=== PATIENT | female | born 1945 | race Caucasian/White ===

== ENCOUNTER 2020-01-22 07:25 | Inpatient (IN) | payer OTHER ==
[~2020-01-22] VITALS: Ht 152.4 cm; Wt 68.3 kg
--- NOTE | ~2020-01-22 | HC ---
[facility] [place] [address] CONSULTATION Name: DINESH MERA Room #: 362- ADM IN M.R.#: [id number] Admission: 01/22/20 Attend Phys: Tim Pagan MD Discharge: Date of : 45 Report #: [id number] THIS REPORT FOR: cc: FAM - Family physician unknown FAM - Family physician unknown Gina Fortune MD ~ REASON FOR CONSULTATION: Elevated creatinine. HISTORY OF PRESENT ILLNESS: A 74-year-old who was brought to the hospital because of worsening overall condition, nausea, vomiting. The patient was discharged from [facility] about a week ago for DVT. She tested positive for COVID-19 and was sent home to self-quarantine. On arrival to the Emergency Room, she was found to have a creatinine value of 5.1. She tells me that she is known to have chronic kidney disease and she sees Dr. Manzano. She was admitted for further evaluation and management. I was consulted to manage her chronic kidney disease. Unfortunately, the patient is not clear by any means on any of her medical problems. We only have creatinine value from 01/22/2020 on watch. PAST MEDICAL HISTORY: 1. Hyperlipidemia. 2. Hypertension. 3. Diabetes mellitus obtained from the medical chart. SOCIAL HISTORY: No drug or alcohol abuse. REVIEW OF SYSTEMS: GENERAL: Significant for weakness and lethargy. CARDIOVASCULAR: No chest pain or palpitation. PULMONARY: Significant for cough and shortness of breath. GASTROINTESTINAL: Significant for nausea and vomiting and decreased oral intake. NEUROLOGICAL: Significant for weakness, but no seizure activities. FAMILY HISTORY: Diabetes mellitus. PHYSICAL EXAMINATION: VITAL SIGNS: Temperature is 36.4, blood pressure is 145/56, respiratory rate is 20. Bedside pulse ox is 96. HEAD AND NECK: No jugular venous distention. CHEST: No crackles. CARDIOVASCULAR: No rub. ABDOMEN: Soft, nontender. LOWER EXTREMITIES: No edema. [facility] [address] [place] [address] CONSULTATION Name: DINESH MERA Room #: 362-P [facility] IN [facility]#: [id number] Admission: 01/22/20 Attend Phys: Tim Pagan MD Discharge: Date of : 45 Report #: [id number] LABORATORY VALUES: Sodium is 131, potassium is 4.3, BUN is 58, creatinine is down to 4.0. IMPRESSION AND PLAN: 1. Chronic kidney disease. 2. COVID-19. 3. I will need to review the patient's medical records from [facility] to know what her baseline is. She sees another electronic warfare linguist and I will reach out to that electronic warfare linguist to discuss her care. As for now, her creatinine seems to be improving and her acute kidney injury seems to be related to her current COVID-19 status. Continue with the IV fluid. 4. Continue to monitor electrolytes. 5. Avoid nephrotoxins. 6. She is stable to be discharged and follow up with her electronic warfare linguist if she is cleared from the other medical aspects. By: 0729 1759 Gina Fortune MD /nt
[2020-01-22 07:26] VITALS: BP 142/54
[2020-01-22 08:52] LABS: HEMATOCRIT 30.6 % (37.0-47.0); MCH 28.5 pg (26.0-34.0); MCHC 32.7 g/dL (28.0-37.0); MCV 87.1 fL (80.0-100.0); RBC 3.51 mil/uL (4.20-5.00); RDW 14.6 % (10.5-14.5); WBC 5.2 thou/uL (4.0-11.0)
[2020-01-22 09:01] LABS: ANION GAP 11 mmol/L (7-16); BUN 82 mg/dL (7-18); CALCIUM 8.8 mg/dL (8.5-10.1); CHLORIDE 100 mmol/L (98-107); CO2 27 mmol/L (21-32); CREATININE 5.1 mg/dL (0.6-1.0); GLUCOSE 193 mg/dL (74-106); POTASSIUM 3.5 mmol/L (3.5-5.1); SODIUM 138 mmol/L (136-145)
[2020-01-22 09:09] LABS: TROPONIN-I <0.06 ng/mL (<0.06)
[2020-01-22 10:19] LABS: URINE BILIRUBIN NEGATIVE (Negative); URINE BLOOD NEGATIVE (Negative); URINE CLARITY CLOUDY; URINE COLOR YELLOW; URINE GLUCOSE-RANDOM* NEGATIVE (Negative); URINE KETONES NEGATIVE (Negative); URINE NITRITE-REFLEX NEGATIVE (Negative); URINE PROTEIN (DIPSTICK) 2+ (Negative); URINE SPECIFIC GRAVITY 1.015 (1.005-1.035); URINE UROBILINOGEN 0.2 E.U./dl (0.2-1.0)
[2020-01-22 10:26] LABS: URINE LEUKOCYTES-REFLEX 3+ (Negative)
[2020-01-22 10:39] LABS: BACTERIA-REFLEX >30 Many /HPF (None Seen); CASTS None Seen /LPF (None Seen); CRYSTALS None Seen /LPF (None Seen); SQUAMOUS 0-3 Few /LPF (0-3)
[2020-01-22 10:40] LABS: URINE RBC None Seen /HPF (0-2)
[2020-01-22 16:12] LABS: ANION GAP 12 mmol/L (7-16); BUN 76 mg/dL (7-18); CALCIUM 8.7 mg/dL (8.5-10.1); CHLORIDE 101 mmol/L (98-107); CO2 25 mmol/L (21-32); CREATININE 4.8 mg/dL (0.6-1.0); DIRECT BILIRUBIN < 0.1 mg/dL (<0.1-0.2); GLUCOSE 122 mg/dL (74-106); POTASSIUM 4.4 mmol/L (3.5-5.1); SGOT 41 U/L (15-37); SGPT 30 U/L (30-65); SODIUM 138 mmol/L (136-145); TOTAL BILIRUBIN 0.3 mg/dL (0.2-1.0); TOTAL PROTEIN 6.4 g/dL (6.4-8.2)
[2020-01-22 16:14] VITALS: BP 138/75
[2020-01-22 18:15] VITALS: BP 134/74
[2020-01-22 18:34] VITALS: BP 143/51
--- NOTE | 2020-01-22 19:07 | NUR ---
PATIENT ADMIT TO UNIT AT 1830. VSS WILL KEEP MONITOR.
[2020-01-22 19:30] VITALS: BP 143/51
[2020-01-22 20:29] LABS: HEMATOCRIT 30.4 % (37.0-47.0); HEMOGLOBIN 10.2 gm/dL (12.0-15.0); MCH 28.9 pg (26.0-34.0); MCHC 33.4 g/dL (28.0-37.0); MCV 86.6 fL (80.0-100.0); RBC 3.51 mil/uL (4.20-5.00); RDW 14.7 % (10.5-14.5); WBC 5.3 thou/uL (4.0-11.0)
[2020-01-23] VITALS (7 sets, daily range): BP systolic 114–153; BP diastolic 43–75
--- NOTE | 2020-01-23 00:29 | NUR ---
PT ADMITTED FROM ED. PT WAS AT HOME LOW FSBS NOT RESPONSIVE, CALLED 911. HAS HAD A STROKE AND HAS HEMIPARESIS. DAUGHTERS CARE FOR PT AND HER . JERRY PALOMO [phone], VASU SAMARIA [phone]. PT DOES NOT HAVE A DPOA. POLLY MERA [phone]. PT IS ALERT TO SELF AND SITUATION, REPETITIVELY ASKS THE SAME QUESTIONS. GAIT UNSTEADY. PT ANSWERED ASSESSMENT QUESTIONS, PT DID NOT KNOW HER HUSBANDS PHONE NUMBER OR DAUGHTERS NAME, BUT GAVE NURSE HER SISTERLUIZA NAME AND A PHONE NUMBER THAT DID NOT WORK. IVF INTACT. PT ASSISTED WITH AMBULATION, BED ALARM ON. PT RESTING IN BED WATCHING ROMAN CATHOLIC ON TV.
--- NOTE | 2020-01-23 02:23 | NUR ---
PT REPETITIVELY GETTING OOB, ASKING WHERE SHE IS, WHY SHE IS HERE, WHERE IS HER . PRN PROVIDED EARLIER IN SHIFT, PT WAS LESS IMPULSIVE AND RESTLESS AND CALM. WILL CALL PROVIDER PT REPEATING PATTERNS OF FREQUENTLY GETTING OOB, ASKING QUESTIONS RE WHERE SHE IS AND WHY SHE IS HERE, PT NOT REMEMEBERING STAFFS REDIRECTION.
[2020-01-23 06:20] LABS: CALCIUM 8.6 mg/dL (8.5-10.1); CREATININE 4.4 mg/dL (0.6-1.0); POTASSIUM 3.9 mmol/L (3.5-5.1)
--- NOTE | 2020-01-23 07:33 | EKG ---
[facility] [place] [address] ELECTROCARDIOGRAM REPORT Name: DINESH MERA Room #: 362-P ADM IN M.R.#: [id number] Admission: 01/22/20 Attend Phys: Tim Pagan MD Discharge: Date of : 45 Report #: [id number] THIS REPORT FOR: cc: JENARO - Family physician unknown FAM - Family physician unknown Vick Moncada MD [facility] ~ THIS REPORT FOR: //name// [facility] ED Test Date: 2020-01-22 Test Time: 08:42:26 Pat Name: DINESH MERA Department: Room: [facility] Gender: F Regulator Inspector: Ranulfo : 1945 Requested By: Kendell Stoddard Order Number: [id number] MD: Vick Moncada Measurements Intervals [place] Rate: 79 P: 57 ID: 215 QRS: 35 QRSD: 134 T: -68 QT: 373 QTc: 428 Interpretive Statements Sinus rhythm Borderline prolonged ID interval IVCD, consider atypical LBBB Baseline wander in lead(s) II Compared to ECG 10/14/2001 20:44:13 No significant changes Electronically Signed On 01-23-2020 7:33:26 NURSES' ASSOCIATION EXECUTIVE DIRECTOR by Vick Moncada [email or web address] <ELECTRONICALLY SIGNED> By: Vick Moncada MD, FACC 01/23/20 0733 0842 Vick Moncada MD, [facility] /EPI
--- NOTE | 2020-01-23 15:47 | NUR ---
Case opened to follow for dc planning. Pt admitted yesterday via the ER with AMS,hypoglycemia, MICHELLE, UTI and Covid positive. The pt is currently in enhanced ISO and unable to complete phone assessment due to confusion. Cloud Security Architect visited with the pt's dtrs Kyra and Ashlee via phone. They are taking care of their father, the pt's spouse who is disabled from a stroke. The dtrs report that the pt and her spouse were both tested positive 2 weeks ago. The pt was at [facility] due to cardiac issues resulting in stent placement. Her initial positive test was on 01/07/20 at [facility]. The pt was dc'd to home a few days ago and HH [facility]. [facility] has been notified of the pt's readmission to the hospital and they can accept at dc. The family reports that the pt was A&ox3 but forgetful prior to 2 weeks ago. She was indep with her meds, gait and most adl's prior to this as well. She has no DME/HH or SNF history. The family helps the couple with IADL's and supervision as well as transportation. They live in a split level home with 3 steps in and 7 up to the bedroom/bath. The pt had been indep prior to the past couple of weeks. The family is hoping the pt's mental status and functional status will improve and she will be able to dc home with HH;however they are open to SNF and possible ltc if needed. SNF referral to [facility] discussed as a plan B. Support provided. ID has been consulted and the pt may be able to dc from enhanced ISO given her original Covid test being >14 days. Cm role introduced. Therapy evals are pending.
--- NOTE | 2020-01-24 00:49 | NUR ---
PT C/O CHEST PAIN, LOWER STERNUM 5/10 USING FACES PAIN SCALE. PT REPORTS A "SHARP" FEELING. PAIN WAS REPRODUCABLE BY PLACING PRESSURE AT THAT SITE. SHE DENIED ANY SOA WHILE AT REST, OR ANY FURTHER SX. TYLENOL GIVEN AND PT REPORTED SOME MILD RELIEF OF THAT PAIN AFTERWARDS. PT CALLED AGAIN AT 2330 WITH CHEST PAIN. SAME LOCATION, SAME DESCRIPTION AND PAIN RATING EXCEPT THIS TIME SHE ALSO REPORTED SOME "BURNING." EKG DONE, TROPONIN DONE AND PENDING. SPOKE WITH DELIVERY RN, REPORTED SITUATION AND EKG FINDINGS INCLUDING VITAL SIGNS. LOPRESSOR AND GI COCKTAIL ORDERED AND GIVEN. NOTED ON THIS SECOND OCCASION THAT PT C/O CHEST PAIN WITH HEART RATE 120'S.
[2020-01-24 01:13] LABS: CALCIUM 8.1 mg/dL (8.5-10.1); POTASSIUM 4.3 mmol/L (3.5-5.1)
[2020-01-24 01:23] LABS: PHOSPHORUS 2.8 mg/dL (2.5-4.9); TROPONIN-I 0.09 ng/mL (<0.06)
[2020-01-24 03:47] VITALS: BP 133/52
[2020-01-24] MEDS ORDERED: GLIPIZIDE 10 MG10 MG PO (06:12)
[2020-01-24] MEDS ORDERED: TOPROL XL100 MG PO (06:12)
[2020-01-24] MEDS ORDERED: LIPITOR40 MG PO (06:13)
[2020-01-24] MEDS ORDERED: ASA81BEC PO (06:13)
[2020-01-24] MEDS ORDERED: HYDROCODON-ACE1 EAC7 PO (06:13)
[2020-01-24] MEDS ORDERED: UNICOMPLEX M TA1 TA1 PO (06:14)
[2020-01-24] MEDS ORDERED: SODIUM BICARBO650 M3 PO (06:15)
[2020-01-24] MEDS ORDERED: IMDUR 60 MG TAB60 M1 PO (06:15)
[2020-01-24] MEDS ORDERED: NORVASC 2.5 MG2.5 M1 PO (06:20)
[2020-01-24] MEDS ORDERED: HYDRALAZINE HC100 MG PO (06:21)
[2020-01-24 07:21] VITALS: BP 145/56
--- NOTE | 2020-01-24 07:26 | EKG ---
[facility] [place] [address] ELECTROCARDIOGRAM REPORT Name: DINESH MERA Room #: 362- ADM IN M.R.#: [id number] Admission: 01/22/20 Attend Phys: Tim Pagan MD Discharge: Date of : 45 Report #: [id number] THIS REPORT FOR: cc: JENARO - Family physician unknown FAM - Family physician unknown Vick Moncada MD [facility] THIS REPORT FOR: //name// [facility] Test Date: 2020-01-23 Test Time: 23:49:57 Pat Name: DINESH MERA Department: Room: 362 Gender: F Mold Clamper: DARYA COLLINS : 1945 Requested By: Judie Johnston Order Number: [id number] MD: Vick Moncada Measurements Intervals [place] Rate: 103 P: 106 CO: 178 QRS: 23 QRSD: 105 T: 85 QT: 387 QTc: 507 Interpretive Statements Sinus tachycardia Borderline repol abnormality, lateral leads Prolonged QT interval Compared to ECG 01/22/2020 08:42:26 Prolonged QT interval now present Sinus rhythm no longer present Electronically Signed On 01-24-2020 7:25:53 [employer] by Vick Moncada [email or web address] <ELECTRONICALLY SIGNED> By: Vick Moncada MD, FACC 01/24/20 0725 2349 2349 Vick Moncada MD, [facility] /EPI
--- NOTE | 2020-01-24 14:57 | NUR ---
MARIMAR reviewed chart and spoke with nursing and attending physician. Pt remains in Enhanced Isolation due to COVID-19. Pt is afebrile and not requiring O2. Pt is on IV abx and IV steroids. ID and cardiology consulted. PT/OT have evaluated pt. Recommendation made for pt to have HH services. MARIMAR spoke with pt's dtr, Kyra, via phone to provide update. Pt's dtr is agreeable with plan for HH. MARIMAR faxed HH referral to [facility] and spoke with Teri in intake to notify of referral. Plan is for pt to return home with HH when medically stable. MARIMAR is following to assist as needed with discharge planning.
[2020-01-24 15:36] VITALS: BP 122/46
[2020-01-24 20:12] VITALS: BP 111/43
[2020-01-25 04:40] LABS: ALBUMIN 2.5 g/dL (3.4-5.0); CALCIUM 8.1 mg/dL (8.5-10.1); CREATININE 3.9 mg/dL (0.6-1.0); PHOSPHORUS 2.3 mg/dL (2.5-4.9); POTASSIUM 4.3 mmol/L (3.5-5.1)
[2020-01-25 04:48] VITALS: BP 127/55
--- NOTE | 2020-01-25 05:25 | NUR ---
PT MAKING PROGRESS TOWARDS GOAL. PT HAS DENIED ANY CHEST PAIN OVERNIGHT. PT CALM AND COOPERATIVE WITH STAFF. CONTINUE TO MONITOR.
[2020-01-25] MEDS ORDERED: CLOPIDOGREL75 MG PO (07:57)
[2020-01-25 10:10] VITALS: BP 127/55
[2020-01-25] MEDS ORDERED: TRADJENTA5 MG PO (10:35)
[2020-01-25] MEDS ORDERED: CIPRO500 MG PO (10:35)
--- NOTE | 2020-01-25 13:42 | NUR ---
ASSUMED CARE OF PT AT 0700. PT ALERT AND ORIENTED TIMES FOUR. VSS. PT DENIES PAIN/SOA. PT UP SITING IN THE CHAIR FOR MOST OF THE DAY. PT TOLERAES MEDS, BUT EATS SMALL PORTIONS OF MEALS. PLANS FOR DISCHAGE HOME TODAY. WILL CONTINUE TO MONITOR.
--- NOTE | 2020-01-25 13:47 | NUR ---
DISCHARGE NOTE: MARIMAR reviewed chart and spoke with nursing and attending physician. Pt is medically stable for discharge home today with home health. MARIMAR faxed finalized discharge orders/summary to [facility] and confirmed info with Aurea in intake. MARIMAR left voice message for pt's dtr, Kyra, to notify of discharge orders. MARIMAR receivd call back from Kyra stating that she is at the hospital picking up pt. All are agreeable with discharge plan. Contact info for [facility] placed in pt's discharge summary. No additional SW needs identified at this time, but is available to assist should needs arise.
== END 2020-01-25 13:45 | disposition home health service (06) | DRG 177 ==
LOC: ER 07:25 → EROBS 10:53 → 3W 10:53
PROVIDERS: Emergency Medicine; Hospitalist; ADMIT Hospitalist; ATTEND Hospitalist
DX: U07.1 COVID-19 (principal); G93.41 Metabolic encephalopathy; N17.0 Acute kidney failure with tubular necrosis; N39.0 Urinary tract infection, site not specified; E87.1 Hypo-osmolality and hyponatremia; N18.4 Chronic kidney disease, stage 4 (severe); E11.649 Type 2 diabetes mellitus with hypoglycemia without coma; E78.5 Hyperlipidemia, unspecified; Z79.899 Other long term (current) drug therapy; E11.22 Type 2 diabetes mellitus with diabetic chronic kidney disease; E11.51 Type 2 diabetes mellitus with diabetic peripheral angiopathy without gangrene; I12.9 Hypertensive chronic kidney disease with stage 1 through stage 4 chronic kidney disease, or unspecified chronic kidney disease; I25.10 Atherosclerotic heart disease of native coronary artery without angina pectoris; D64.9 Anemia, unspecified; B96.20 Unspecified Escherichia coli [E. coli] as the cause of diseases classified elsewhere; Z88.0 Allergy status to penicillin; Z88.8 Allergy status to other drugs, medicaments and biological substances; Z95.820 Peripheral vascular angioplasty status with implants and grafts; Z79.82 Long term (current) use of aspirin
CPT/HCPCS: 10879

== ENCOUNTER 2020-03-27 20:29 | Observation (INO) | payer OTHER ==
[~2020-03-27] VITALS: Ht 152.4 cm; Wt 65.8 kg
--- NOTE | ~2020-03-27 | P ---
[facility] [place] [address] PROCEDURE REPORT Name: DINESH MERA Room #: 210-P [facility] Puneet [place]#: [id number] Admission: 03/27/20 Attend Phys: Tim Pagan MD Discharge: 03/29/20 Date of : 45 Report #: [id number] THIS REPORT FOR: cc: Lm Chappell MD, Steven E. MD McElhinney, Christian C. MD ~ DATE OF SERVICE: 03/29/2020 PROCEDURE PERFORMED: Upper endoscopy with biopsies. HISTORY OF PRESENT ILLNESS: The patient is a 74-year-old female who was admitted with chest pain. She has a previous history of coronary artery disease, status post CABG in 2003, on aspirin and Plavix, was noted to have a hemoglobin of 9.3. She denies any obvious bright red blood per rectum or melena. No previous history of upper endoscopy. Last colonoscopy was greater than 10 years ago. Cardiac workup was negative. Plan is for upper endoscopy today. DESCRIPTION OF PROCEDURE: The risks and benefits of the procedure were explained to the patient, those risks including, but not limited to, bleeding, perforation, and the risk of sedation. She understood these risks and gave informed consent. Sedation was given using propofol per anesthesia. Next, using a standard Olympus upper endoscope, the scope was placed in the patient's mouth and advanced under direct vision to the esophagus, stomach, and into the second portion of the duodenum. The larynx was normal in appearance. The esophagus was normal throughout. The GE junction was normal. Overall, the gastric fundus and body were normal. In the gastric antrum, however, a single 2 cm clean white-based ulcer was noted. No evidence of bleeding. Biopsies were obtained to rule out H. pylori. The pylorus was normal and patent. The duodenal bulb, first and second portion were all normal. The scope was then withdrawn and the procedure terminated. The patient tolerated the procedure well. IMPRESSION: 1. Single antral ulcer. No active bleeding; however, could be etiology of the patient's anemia. 2. Otherwise, normal upper endoscopy. RECOMMENDATIONS: 1. Await biopsy results. 2. Would recommend starting daily PPI therapy. I gave the patient a script for Protonix 40 mg on a daily basis, as she is likely to be discharged home today. 3. Would recommend a routine outpatient colonoscopy when the patient can be off aspirin and Plavix for approximately [address] [address] PROCEDURE REPORT Name: DINESH MERA Room #: 210-P [facility] [place]#: [id number] Admission: 03/27/20 Attend Phys: Tim Pagan MD Discharge: 03/29/20 Date of : 45 Report #: [id number] Thank you for allowing me to participate in her care. By: 1502 1746 Todd Kaiser MD /nt
[~2020-03-27 20:29] MED LIST: ASA81BEC PO; CIPRO500 MG PO; CLOPIDOGREL75 MG PO; GLIPIZIDE 10 MG10 MG PO; HYDRALAZINE HC100 MG PO; HYDROCODON-ACE1 EAC7 PO; IMDUR 60 MG TAB60 M1 PO; LIPITOR40 MG PO; NORVASC 2.5 MG2.5 M1 PO; SODIUM BICARBO650 M3 PO; TOPROL XL100 MG PO; TRADJENTA5 MG PO; UNICOMPLEX M TA1 TA1 PO
[2020-03-27 20:31] VITALS: BP 193/60
[2020-03-27 21:12] LABS: ABSOLUTE NEUTROPHILS 4.3 thou/uL (1.4-8.2); BASOPHILS 2.8 % (0.0-2.0); EOSINOPHILS 4.4 % (0.0-3.0); HEMATOCRIT 29.3 % (37.0-47.0); HEMOGLOBIN 9.4 gm/dL (12.0-15.0); LYMPHOCYTES 14.7 % (24.0-44.0); MCH 27.6 pg (26.0-34.0); MCHC 32.2 g/dL (28.0-37.0); MCV 85.8 fL (80.0-100.0); MONOCYTES 7.6 % (1.0-8.0); PLATELET COUNT 349 thou/uL (150-400); POLYS 70.5 % (36.0-66.0); RBC 3.41 mil/uL (4.20-5.00); RDW 15.1 % (10.5-14.5); WBC 6.1 thou/uL (4.0-11.0)
[2020-03-27 21:19] LABS: ANION GAP 14 mmol/L (7-16); BUN 33 mg/dL (7-18); CALCIUM 8.9 mg/dL (8.5-10.1); CHLORIDE 104 mmol/L (98-107); CO2 20 mmol/L (21-32); CREATININE 3.6 mg/dL (0.6-1.0); GLUCOSE 198 mg/dL (74-106); POTASSIUM 4.2 mmol/L (3.5-5.1); SODIUM 138 mmol/L (136-145)
[2020-03-27 21:28] LABS: SGOT 18 U/L (15-37); SGPT 20 U/L (30-65); TOTAL BILIRUBIN 0.2 mg/dL (0.2-1.0); TOTAL PROTEIN 7.6 g/dL (6.4-8.2); TROPONIN-I <0.06 ng/mL (<0.06)
[2020-03-27 22:19] VITALS: BP 153/57
[2020-03-27 22:45] VITALS: BP 157/52
[2020-03-27 23:10] VITALS: BP 159/54
--- NOTE | 2020-03-28 00:37 | NUR ---
PATIENT IS A NEW ADMISSION TO THE UNIT THIS SHIFT. SHE ARRIVED VIA CART FROM THE ER AND WAS ABLE TO AMBULATE TO THE BED WITHOUT ASSISTANCE. PATIENT IS FULLY ALERT AND ORIENTED AND ABLE TO PARTICIPATE IN ADMISSION AND CALL APPROPRIATELY FOR NEEDS. NO COMPLAINTS OF CHEST PAIN OR ANY OTHER CARDIAC SYMPTOMS. NURSE TO COMPLETE ADMISSION AND INITIATE PLAN OF CARE.
[2020-03-28 02:48] LABS: HEMATOCRIT 25.9 % (37.0-47.0); HEMOGLOBIN 8.4 gm/dL (12.0-15.0); MCH 27.4 pg (26.0-34.0); MCHC 32.3 g/dL (28.0-37.0); MCV 84.9 fL (80.0-100.0); RBC 3.05 mil/uL (4.20-5.00); RDW 14.8 % (10.5-14.5); WBC 4.8 thou/uL (4.0-11.0)
[2020-03-28 03:09] LABS: ANION GAP 11 mmol/L (7-16); BUN 31 mg/dL (7-18); CALCIUM 8.6 mg/dL (8.5-10.1); CHLORIDE 108 mmol/L (98-107); CHOLESTEROL 139 mg/dL (<200); CO2 21 mmol/L (21-32); CREATININE 3.4 mg/dL (0.6-1.0); GLUCOSE 124 mg/dL (74-106); HDL CHOLESTEROL 60 mg/dL (>40); LDL CHOLESTEROL 57 mg/dL (<100); POTASSIUM 4.4 mmol/L (3.5-5.1); SODIUM 140 mmol/L (136-145); TC:HDL 2.3 Ratio (Not establshd); TRIGLYCERIDE 111 mg/dL (<150); TROPONIN-I <0.06 ng/mL (<0.06); VLDL 22 mg/dL (<40)
[2020-03-28 03:11] LABS: SERUM ASSESSMENT Clear
[2020-03-28 04:36] VITALS: BP 157/55
--- NOTE | 2020-03-28 07:27 | EKG ---
[address] [place] [address] ELECTROCARDIOGRAM REPORT Name: DINESH MERA Room #: 210-P ADM IN M.R.#: [id number] Admission: 03/27/20 Attend Phys: Tim Pagan MD Discharge: Date of : 45 Report #: [id number] [facility] ED Test Date: 2020-03-27 Test Time: 20:37:14 Pat Name: DINESH MERA Department: Room: 210 Gender: F Cryptographic Technician: MERISSA : 1945 Requested By: Juwan Gamboa Order Number: [id number] MD: Vick Moncada Measurements Intervals [place] Rate: 57 P: 48 VA: 170 QRS: 15 QRSD: 108 T: 37 QT: 450 QTc: 439 Interpretive Statements Sinus rhythm Anteroseptal infarct, old Minimal ST depression, lateral leads Baseline wander in lead(s) I,III,aVL,aVF,V4,V6 Compared to ECG 01/23/2020 23:49:57 Myocardial infarct finding now present ST (T wave) deviation now present Sinus tachycardia no longer present Prolonged QT interval no longer present Electronically Signed On 03-28-2020 7:27:03 SALES OPERATIONS COORDINATOR by Vick Moncada [email or web address] <ELECTRONICALLY SIGNED> By: Vick Moncada MD, FACC 03/28/20726 36 36 Vick Moncdaa MD, FAC /EPI
[2020-03-28] MEDS ORDERED: ARICEPT10 M1 PO (07:36)
[2020-03-28] MEDS ORDERED: LEVEMIR100 UNIT/1 SUBQ (07:37)
[2020-03-28] MEDS ORDERED: HYDRALAZINE 5050 MG PO (07:55)
[2020-03-28 08:45] VITALS: BP 155/99
[2020-03-28 08:56] LABS: % SATURATION 17 % (20-39); IRON 34 ug/dL (50-170); TIBC 199 ug/dL (250-450)
--- NOTE | 2020-03-28 12:02 | 2DMMODE ---
[facility] [place] [address] 2 D/M-MODE ECHOCARDIOGRAM Name: DINESH MERA Room #: 210-P ADM IN M.R.#: [id number] Admission: 03/27/20 Attend Phys: Tim Pagan MD Discharge: Date of : 45 Report #: [id number] THIS REPORT FOR: cc: Lm Chappell MD, Steven E. MD Santiago, Patrick MD [facility] ~ APPROVED REPORT Study performed: 03/28/2020 10:18:35 EXAM: Comprehensive 2D, Doppler, and color-flow Echocardiogram Patient Location: Bedside Status: routine BSA: 1.72 HR: 57 bpm BP: 155/99 mmHg Rhythm: Bradycardia Other Information Study Quality: Good Indications Diabetes CAD Chest Pain Hypertension/HDD 2D Dimensions RVDd: 49.98 mm IVSd: 10.13 (7-11mm) LVOT Diam: 18.93 (18-24mm) LVDd: 44.76 mm PWd: 11.51 (7-11mm) LVDs: 28.48 (25-40mm) Aortic Root: 22.78 mm IVC: 12.00 mm Volumes Left Atrial Volume (Systole) Single Plane 4CH: 59.47 mL Single Plane 2CH: 114.59 mL LA ESV Index: 52.00 mL/m2 Aortic Valve AoV Peak Sea.: 1.40 m/s AO Peak Gr.: 7.85 mmHg LVOT Max P.14 mmHg [facility] [address] [place] [address] 2 D/M-MODE ECHOCARDIOGRAM Name: DINESH MERA Trae Room #: 210-P [facility] IN .R.#: [id number] Admission: 03/27/20 Attend Phys: Trae More Discharge: Date of : 45 Report #: [id number] LVOT Max V: 0.89 m/s KATIE Vmax: 1.78 cm2 Mitral Valve E/A Ratio: 1.1 MV Decel. Time: 323.11 ms MV E Max Sea.: 1.46 m/s MV A Sea.: 1.30 m/s MV PHT: 93.70 ms Pulmonary Valve PV Peak Sea.: 1.18 m/s PV Peak Gr.: 5.56 mmHg Pulmonary Vein P Vein S: 0.59 m/s P Vein A: 0.50 m/s P Vein D: 0.55 m/s P Vein A Dur.: 143.0 msec P Vein S/D Ratio: 1.07 Tricuspid Valve TR Peak Sea.: 3.41 m/s TR Peak Gr.: 46.60 mmHg PA Pressure: 52.00 mmHg Left Ventricle The left ventricle is normal size. There is normal left ventricular wall thickness. The left ventricular systolic function is normal. The left ventricular ejection fraction is within the normal range. LVEF is 55-60%. The left ventricular diastolic function is abnormal. Right Ventricle Right ventricle is dilated. The right ventricular systolic function is normal. Atria Left atrium is dilated. Right atrium is dilated. Aortic Valve The aortic valve is normal in structure. The Aortic valve is sclerotic. No aortic regurgitation is present. There is no aortic valvular stenosis. Mitral Valve The mitral valve is normal in structure. Moderate mitral regurgitation. No evidence of mitral valve stenosis. [facility] [address] [place] [address] 2 D/M-MODE ECHOCARDIOGRAM Name: DINESH MERA Room #: 210-[facility] IN .R.#: [id number] Admission: 03/27/20 Attend Phys: Trae More Discharge: Date of : 45 Report #: [id number] Tricuspid Valve The tricuspid valve is normal in structure. There is moderate tricuspid regurgitation. Estimated PAP 52 mmHg. There is moderate pulmonary hypertension. Pulmonic Valve The pulmonary valve is normal in structure. There is no pulmonic valvular regurgitation. Great Vessels The aortic root is normal in size. IVC is normal in size and collapses >50% with inspiration. Pericardium There is no pericardial effusion. <Conclusion> Normal left ventricular size and wall thickness Ejection fraction 60% Right ventricle mildly dilated Mild biatrial enlargement Color-flow Doppler study was performed of the aortic/mitral/tricuspid/pulmonary valve Minimal aortic valve calcification, no stenosis Moderate/central mitral valve insufficiency Moderate tricuspid valve insufficiency Pulmonary artery systolic pressure estimated at 52 mmHg No pericardial effusion Normal aortic root size. <ELECTRONICALLY SIGNED> By: Vick Moncada MD, FACC 03/28/201201 01 01 Vick Moncada MD, FACC /INF
[2020-03-28 12:11] LABS: HEMATOCRIT 29.1 % (37.0-47.0); HEMOGLOBIN 9.3 gm/dL (12.0-15.0)
[2020-03-28 12:32] VITALS: BP 131/51
[2020-03-28 12:45] VITALS: BP 153/57
[2020-03-28 16:45] VITALS: BP 151/47
[2020-03-28 19:20] VITALS: BP 146/55
--- NOTE | 2020-03-28 19:35 | NUR ---
A/O, calm and cooperative. Denied pain, no n/v. Patient is aware that she will be NPO after midnight. EGD consent signed.
[2020-03-29 00:06] LABS: GLYCOHEMOGLOBIN (HGB A1C) 6.3 % (4.8-5.6)
[2020-03-29 03:22] VITALS: BP 158/51
[2020-03-29 04:57] LABS: ALBUMIN 3.2 g/dL (3.4-5.0); CALCIUM 8.6 mg/dL (8.5-10.1); CREATININE 3.5 mg/dL (0.6-1.0); PHOSPHORUS 3.5 mg/dL (2.5-4.9); POTASSIUM 4.6 mmol/L (3.5-5.1)
--- NOTE | 2020-03-29 05:27 | NUR ---
ASSUMED PATIENT CARE AT 1845. VITAL SIGNS STABLE WITH PATIENT HAVING NO COMPLAINTS OF PAIN OR NAUSEA. FULLY ALERT AND ORIENTED, PATIENT IS ABLE TO CALL APPROPRIATELY FOR NEEDS. PATIENT HAS BEEN NPO FROM MIDNIGHT ON IN ANTICIPATION OF TODAYS PROCEDURE. UP MULTIPLE TIMES TO THE RESTROOM INCIDENT FREE. CONTINUE PLAN OF CARE.
[2020-03-29 08:00] VITALS: BP 176/64
[2020-03-29 09:50] LABS: HEMOGLOBIN 8.7 gm/dL (12.0-15.0)
[2020-03-29 11:22] VITALS: BP 157/55
[2020-03-29] MEDS ORDERED: PROTONIX40 M2 PO (13:13)
[2020-03-29] MEDS ORDERED: NORVASC10 MG PO (13:25)
[2020-03-29] MEDS ORDERED: ARICEPT10 M1 PO (15:11)
[2020-03-29 15:23] VITALS: BP 157/55
[2020-03-29 15:30] VITALS: BP 157/55
--- NOTE | 2020-04-02 15:07 | PATH ---
[facility] [address] [place] [address] PATHOLOGY RPT PROCEDURE Name: REBECCA LOBATO Room #: 210-P [facility] [place]#: [id number] Admission: 03/27/20 Date of : 45 Discharge: 03/29/20 Report #: [id number] Path Case #: [id number] [facility] Accession Number: [id number] . 01 Material submitted: . gastrointestinal site - ANTRUM ULCER R/O H.PYLORI . 02 Diagnosis: Gastric mucosa, antrum ulcer rule out H. pylori, endoscopic biopsy: - Helicobacter pylori-induced moderate active gastritis. - Negative for intestinal metaplasia or atrophy. - Numerous Helicobacter pylori organisms present on the properly-controlled immunohistochemical stain. . (IUV:mml; 04/02/2020) QLM 04/02/2020 1239 Local . 02 Electronically signed: . Jenna Gallardo MD, Pathologist NPI- [id number] . 01 Gross description: . The specimen is received in formalin, labeled "Rebecca Lobato, biopsy antrum ulcer, R/O H. pylori". Received are three segments of pale degroot soft tissue ranging in size from 0.4 to 0.5 cm in maximum dimensions. The specimen is submitted entirely in cassette A1. (CAA; 03/30/2020) QAC/QAC 03/30/2020 1129 Local . 02 Pathologist provided ICD-10: K29.60, B96.81 . 02 CPT . 933152, E08506 Specimen Comment: A courtesy copy of this report has been sent to [phone], [phone] Specimen Comment: [id number] Specimen Comment: Report sent to / DR MAYER Performed at: [address], [place] [id number] MD Jose Fuentes MD Phone: [phone] Performed at: [address] [id number] MD Jenna Gallardo MD Phone: [phone]
== END 2020-03-29 17:34 | disposition home or self-care (01) ==
LOC: ER 20:29 → 2N 22:37
PROVIDERS: Emergency Medicine; Hospitalist; Internal Medicine; Nurse Practitioner Family; ADMIT Hospitalist; ATTEND Hospitalist
DX: R07.89 Other chest pain (principal); K25.9 Gastric ulcer, unspecified as acute or chronic, without hemorrhage or perforation; Z20.828 Contact with and (suspected) exposure to other viral communicable diseases; I13.0 Hypertensive heart and chronic kidney disease with heart failure and stage 1 through stage 4 chronic kidney disease, or unspecified chronic kidney disease; E11.22 Type 2 diabetes mellitus with diabetic chronic kidney disease; I50.9 Heart failure, unspecified; N18.30 Chronic kidney disease, stage 3 unspecified; I25.10 Atherosclerotic heart disease of native coronary artery without angina pectoris; R79.89 Other specified abnormal findings of blood chemistry; E78.5 Hyperlipidemia, unspecified; Z95.1 Presence of aortocoronary bypass graft; Z88.0 Allergy status to penicillin; Z88.1 Allergy status to other antibiotic agents; Z88.8 Allergy status to other drugs, medicaments and biological substances; Z79.02 Long term (current) use of antithrombotics/antiplatelets; Z79.899 Other long term (current) drug therapy; Z79.82 Long term (current) use of aspirin
CPT/HCPCS: 10081; 70005

== ENCOUNTER 2020-06-05 10:31 | Emergency (ER) | payer OTHER ==
[~2020-06-05] VITALS: Ht 152.4 cm; Wt 65.3 kg
[~2020-06-05 10:31] MED LIST changes: +ARICEPT10 M1 PO; +HYDRALAZINE 5050 MG PO; +LEVEMIR100 UNIT/1 SUBQ; +NORVASC10 MG PO; +PROTONIX40 M2 PO
[2020-06-05] MEDS ORDERED: ARICEPT10 MG PO (11:30)
[2020-06-05] MEDS ORDERED: LIPITOR 40 MG T40 M1 PO (11:31)
[2020-06-05] MEDS ORDERED: LEVEMIR FL100 UNIT/2 (11:31)
[2020-06-05 13:36] VITALS: BP 141/41
[2020-06-05] MEDS ORDERED: NORCO5 PO (13:36)
[2020-06-05] MEDS ORDERED: CLINDAMYCIN HC300 MG PO (13:36)
== END 2020-06-05 15:06 | disposition home or self-care (01) ==
LOC: ER 10:31
DX: S52.531A Colles' fracture of right radius, initial encounter for closed fracture (principal); S60.811A Abrasion of right wrist, initial encounter; E78.5 Hyperlipidemia, unspecified; E11.22 Type 2 diabetes mellitus with diabetic chronic kidney disease; I13.0 Hypertensive heart and chronic kidney disease with heart failure and stage 1 through stage 4 chronic kidney disease, or unspecified chronic kidney disease; N18.4 Chronic kidney disease, stage 4 (severe); I50.9 Heart failure, unspecified; Z95.1 Presence of aortocoronary bypass graft; Z79.899 Other long term (current) drug therapy; Z79.4 Long term (current) use of insulin; Z88.0 Allergy status to penicillin; Z88.1 Allergy status to other antibiotic agents; Z88.8 Allergy status to other drugs, medicaments and biological substances; W01.0XXA Fall on same level from slipping, tripping and stumbling without subsequent striking against object, initial encounter; Y93.89 Activity, other specified; Y92.89 Other specified places as the place of occurrence of the external cause; Y99.8 Other external cause status

== ENCOUNTER 2020-10-10 20:37 | Inpatient (IN) | payer OTHER ==
[~2020-10-10] VITALS: Ht 152.4 cm; Wt 60.4 kg
[~2020-10-10 20:37] MED LIST changes: +ARICEPT10 MG PO; +CLINDAMYCIN HC300 MG PO; +LEVEMIR FL100 UNIT/2; +LIPITOR 40 MG T40 M1 PO; +NORCO5 PO
[2020-10-10 20:39] VITALS: BP 156/74
[2020-10-10 21:03] LABS: ABSOLUTE NEUTROPHILS 3.8 thou/uL (1.4-8.2); BASOPHILS 2.1 % (0.0-2.0); EOSINOPHILS 3.2 % (0.0-3.0); HEMATOCRIT 25.8 % (37.0-47.0); HEMOGLOBIN 8.3 gm/dL (12.0-15.0); LYMPHOCYTES 18.5 % (24.0-44.0); MCH 29.1 pg (26.0-34.0); MCHC 32.3 g/dL (28.0-37.0); MONOCYTES 8.6 % (1.0-8.0); PLATELET COUNT 128 thou/uL (150-400); POLYS 67.6 % (36.0-66.0); RBC 2.87 mil/uL (4.20-5.00); RDW 15.4 % (10.5-14.5); WBC 5.7 thou/uL (4.0-11.0)
[2020-10-10 21:12] LABS: ANION GAP 14 mmol/L (7-16); BUN 76 mg/dL (7-18); CALCIUM 8.4 mg/dL (8.5-10.1); CHLORIDE 105 mmol/L (98-107); CO2 20 mmol/L (21-32); CREATININE 4.2 mg/dL (0.6-1.0); GLUCOSE 227 mg/dL (74-106); SODIUM 139 mmol/L (136-145)
[2020-10-10 21:21] LABS: TROPONIN-I <0.06 ng/mL (<0.06)
[2020-10-10 21:26] LABS: INR 1.03; PROTIME 11.2 Seconds (10.5-12.1)
[2020-10-10 22:57] VITALS: BP 143/58
[2020-10-10 23:52] VITALS: BP 153/67
[2020-10-11 00:13] VITALS: BP 158/75
[2020-10-11 03:08] VITALS: BP 149/67
--- NOTE | 2020-10-11 03:13 | NUR ---
PT REMAIN ALERT AND ORIENT TIMES FOUR, FORGETFUL AT TIMES. HUITRON. DENIES CP. NTG GTT AND HEPARIN GTT INFUSING WITHOUT DIFFICULTY. VSS, AFEBRILE. QUESTIONS ASKED AND ANSWERED. SR PER MONITOR. WILL CONTINUE TO MONITOR.
[2020-10-11 03:59] LABS: CALCIUM 8.1 mg/dL (8.5-10.1)
[2020-10-11 04:01] LABS: TROPONIN-I 1.37 ng/mL (<0.06)
--- NOTE | 2020-10-11 07:18 | EKG ---
[address] [address] ELECTROCARDIOGRAM REPORT Name: DINESH MERA Room #: 206-P ADM IN M.R.#: [id number] Admission: 10/10/20 Attend Phys: Manuel Emerson MD Discharge: Date of : 45 Report #: [id number] [facility] ED Test Date: 2020-10-10 Test Time: 20:40:28 Pat Name: DINESH MERA Department: Room: 206 Gender: F Desk Director: THADDEUS SCHWARZ : 1945 Requested By: Louis Fernando Order Number: [id number] MD: Vick Moncada Measurements Intervals [place] Rate: 122 P: 65 [place]: 101 QRS: -50 QRSD: 171 T: 140 QT: 352 QTc: 502 Interpretive Statements Sinus tachycardia Left bundle branch block Compared to ECG 03/27/2020 20:37:14 Left bundle-branch block now present Sinus rhythm no longer present Myocardial infarct finding no longer present ST (T wave) deviation no longer present Electronically Signed On 10-11-2020 7:18:24 CDT by Vick Moncada [email or web address] <ELECTRONICALLY SIGNED> By: Vick Moncada MD, FACC 10/11/20717 39 39 Vick Moncada MD, [facility] /EPI
[2020-10-11 07:41] VITALS: BP 153/56
--- NOTE | 2020-10-11 10:06 | 2DMMODE ---
[facility] [place] [address] 2 D/M-MODE ECHOCARDIOGRAM Name: DINESH MERA Room #: 206-P ADM IN M.R.#: [id number] Admission: 10/10/20 Attend Phys: Manuel Emerson MD Discharge: Date of : 45 Report #: [id number] THIS REPORT FOR: cc: Lm Chappell MD, Steven E. MD Park, Jin S. MD ~ APPROVED REPORT Study performed: 10/11/2020 08:57:13 EXAM: Comprehensive 2D, Doppler, and color-flow Echocardiogram Patient Location: Bedside Room #: 206 Status: routine BSA: 1.71 HR: 105 bpm BP: 153/56 mmHg Rhythm: LBBB/TACHY Other Information Study Quality: Good Indications Chest pain, short of breath. Hx: CABG, PCI, HTN, HLP, DM, COVID-19 (12/2019). 2D Dimensions RVDd: 44.34 mm IVSd: 9.96 (7-11mm) LVOT Diam: 18.13 (18-24mm) LVDd: 50.51 mm PWd: 10.22 (7-11mm) Ascending Ao: 26.29 (22-36mm) LVDs: 38.49 (25-40mm) Left Atrium: 42.40 (27-40mm) Aortic Root: 27.75 mm Volumes Left Atrial Volume (Systole) Single Plane 4CH: 67.78 mL Single Plane 2CH: 69.72 mL LA ESV Index: 44.00 mL/m2 Aortic Valve AoV Peak Sea.: 1.56 m/s AO Peak Gr.: 9.74 mmHg LVOT Max P.72 mmHg AO Mean Gr.: 4.82 mmHg [facility] [place] [address] 2 D/M-MODE ECHOCARDIOGRAM Name: SAMARIADINESH Trae Room #: 206-[facility] IN ..#: [id number] Admission: 10/10/20 Attend Phys: Manuel Emerson, Discharge: Date of : 45 Report #: [id number] AO V2 Mean: 1.01 m/s LVOT Max V: 0.96 m/s AO V2 VTI: 23.35 cm KATIE Vmax: 1.60 cm2 Mitral Valve MV Decel. Time: 261.12 ms MV PHT: 76.12 ms MVA (PHT): 2.89 cm2 Pulmonary Valve PV Peak Sea.: 1.44 m/s PV Peak Gr.: 8.30 mmHg Tricuspid Valve TR Peak Sea.: 4.22 m/s RAP Estimate: 15.00 mmHg TR Peak Gr.: 71.35 mmHg PA Pressure: 86.00 mmHg Left Ventricle The left ventricle is normal size. Regional wall motion abnormalities are noted. There is normal left ventricular wall thickness. Left ventricular systolic function is moderately decreased. LVEF is 40%. This study is not technically sufficient to allow evaluation of the LV diastolic function. Right Ventricle Right ventricle is mildly dilated. Atria Left atrium is severely dilated. Right atrium is moderately dilated. Aortic Valve Aortic valve is trileaflet. Leaflets are thickend and calcified but have adequate excursion. Trace aortic regurgitation. There is no aortic valvular stenosis. Mitral Valve Mitral valve leaflets are thickened and calcified. There is mitral annular calcification. Some resticted motion of the MV leaflets. Mean gradient of 10mmHg. Severe mitral regurgitation. Tricuspid Valve The tricuspid valve is normal in structure. Severe tricuspid regurgitation. Estimated PAP - 70mmHg. Pulmonic Valve [facility] [address] [place] [address] 2 D/M-MODE ECHOCARDIOGRAM Name: DINESH MERA Room #: 206-P [facility] IN .R.#: [id number] Admission: 10/10/20 Attend Phys: Manuel Emerson, Discharge: Date of : 45 Report #: [id number] The pulmonary valve is normal in structure. Moderate to severe pulmonic regurgitation. Great Vessels The aortic root is normal in size. The ascending aorta is normal in size. IVC is dilated and collapses <50% with inspiration. Pericardium There is no pericardial effusion. Right pleural effusion seen. <Conclusion> The left ventricle is normal size. There is normal left ventricular wall thickness. Left ventricular systolic function is moderately decreased. LVEF is 40%. Right ventricle is mildly dilated. Left atrium is severely dilated. Aortic valve is trileaflet. Leaflets are thickend and calcified but have adequate excursion. Severe mitral regurgitation. Severe tricuspid regurgitation. Estimated PAP - 70mmHg. <ELECTRONICALLY SIGNED> By: Saw Cheney MD 10/11/20 1005 1005 1005 Saw Cheney MD /INF
[2020-10-11 11:25] VITALS: BP 137/63
--- NOTE | 2020-10-11 15:24 | CATHLAB ---
[facility] [place] [address] INVASIVE PROCEDURE REPORT Name: DINESH MERA Room #: 206-P ADM IN M.R.#: [id number] Admission: 10/10/20 Attend Phys: Manuel Emerson MD Discharge: Date of : 45 Report #: [id number] THIS REPORT FOR: cc: Lm Chappell MD, Steven E. MD Park, Jin S. MD ~ APPROVED REPORT Study performed: 10/11/2020 12:49:02 Patient Details Patient Status: In-Patient Room #: The patient is a 75 year-old female Event Personnel Saw Cheney Slip Cover Seamstress, Jay Carrasquillo RN RN, Magdalene Blunt RN RN, Hannah Clement RTR Scrjaiden, Mary Farrar RTR Monitor Procedures Performed Left Heart Cath Coronaries, Bypass Grafts [id number] LHCCORCABG Art Access - R femoral artery* 98913 Initial Mod Sed Same Phys/QHP Gr5y [id number] 82321 Mod Sed Same Phys/QHP Ea [id number] Hemostasis with Manual pressure Indication Non-STEMI , Heart failure, Cardiomyopathy, Chest pain Risk Factors Hypercholesterolemia, Coronary Artery DiseaseHypertensionRenal Failure, Diabetes Previous Procedures/Diagnoses Previous CABGPrevious PCI, Previous AK Procedure Narrative The Right Groin^ was infiltrated with 1% Lidocaine subcutaneous anesthesia. A PINNACLE 4FR Sheath #[id number] sheath was inserted into the RFA^. Coronary angiography was performed using coronary diagnostic catheters. The right coronary system was accessed and visualized with a JLR catheter. The left coronary system was accessed and visualized with a JL4 catheter. The left ventricle was accessed and visualized with a JR4 catheter. Left ventricular/Aortic Valve gradient assessed via catheter pullback. Left ventriculogram was [facility] [address] [place] [address] INVASIVE PROCEDURE REPORT Name: SAMARIADINESH Larkin Room #: 206-P [facility] IN ..#: [id number] Admission: 10/10/20 Attend Phys: Manuel Emerson, Discharge: Date of : 45 Report #: [id number] performed in 30 degree projection. Hemostasis was obtained with manual pressure following sheath removal without any complications. The patient tolerated the procedure well and there were no complications associated with the procedure. There was no hematoma. Intraoperative Conscious Sedation Sedation start time: 13:56 Case end Time: 14:46 Fentanyl mcg Versed mg Fluoro Time: 5.10 minutes Dose: DAP 4692.80 cGycm2 610 mGy Contrast Type and Amount: Visipaque 70 ml Coronary Angiography The patient's coronary anatomy is right dominant. Diagnostic Cath Left Main There is a severe stenosis in the distal left main. LAD The ostial LAD is occluded. There is a patent WILL graft with an end-to-side anastomosis to the mid LAD. After the anastomosis, there is both retrograde and anterograde flow. Within the mid/distal LAD segment, there is a moderate stenosis, 50%. Diagonal 1 There is a patent Y graft to OM 2 and the first diagonal artery. The branch to the first diagonal artery has a patent stent. After the anastomosis, the [place] diagonal artery divides into several branches, with no flow-limiting lesions. OM1 This vessel appears to be occluded and the distal segment is partially filled via collateral circulation. OM2 There is a patent Y graft to OM 2. After the anastomosis, there is also retrograde filling of the distal circumflex and small OM vessels. Right Coronary The RCA is a dominant vessel with a total occlusion proximally. R PDA There is a patent SVG to the PDA. After the anastomosis, there is retrograde filling of the RPL branch. Left Ventriculography Left Ventriculography was not performed. Ejection Fraction was 40% based off patient's Echocardiogram. An LVEDP was measured and there is no gradient across the outflow tract. Hemodynamics [facility] [address] [address] INVASIVE PROCEDURE REPORT Name: DINESH MERA Room #: 206-P [facility] IN M.R.#: [id number] Admission: 10/10/20 Attend Phys: Manuel Emerson, Discharge: Date of : 45 Report #: [id number] The aortic pressure is 160/73 mmHg with a mean of 89 mmHg. The left ventricular pressure is 156/20 mmHg with a mean of mmHg. The left ventricular end diastolic pressure is 30 mmHg. Pullback from the left ventricle to the aorta revealed no gradient across the aortic valve. Conclusion 1. Severe three-vessel [place] coronary artery disease. 2. There is a patent WILL graft to the mid LAD. There is a moderate stenosis in the mid/distal LAD. 3. There is a patent SVG to the PDA, with retrograde filling of the RPL branch. 4. There is a patent Y graft to the first diagonal artery and second obtuse marginal artery. 5. There is severe mitral regurgitation and moderate LV dysfunction on the echocardiogram. 6. Recommend guideline directed medical therapy. <ELECTRONICALLY SIGNED> By: Saw Cheney MD 10/11/20 1523 1523 1523 Saw Cheney MD /INF
--- NOTE | 2020-10-11 16:43 | NUR ---
ASSESSMENT CHARTED - PT CONFUSED THIS AM A LITTLE LESS JA AFTERNOON WAS ABLE TO TELL MT WHAT DAY IT IS NOT THE YEAR. PT TO THE DIESEL ENGINE OPERATOR TODAY - HAD TUNNELED DIALYSIS CATH PLACED TO R CHEST AREA AND CATH COMPLETED - R IJ AREA WITH NO SWELLING PRESENT - R SHAISTA DRESSING C/D/I. VSS NO CO'S OF PAIN. NI INTERVENETION. HEPARIN AND NTG DRIP D/C'D. IV FLUIDS ORDERED, ECHO COMPLETED THIS AM. PT HAS VOIDED POST PROCEDURE. ACCUCHECKS CHARTED - PT ON BEDREST UNTIL 1745 3 HOURS POST HEAMO @ 1445. NO CO'S AT THE PRESENT TIME.
[2020-10-11 19:20] VITALS: BP 144/71
[2020-10-12 00:06] LABS: GLYCOHEMOGLOBIN (HGB A1C) 5.9 % (4.8-5.6)
[2020-10-12 02:24] LABS: HEMATOCRIT 23.8 % (37.0-47.0); HEMOGLOBIN 7.7 gm/dL (12.0-15.0); MCH 29.3 pg (26.0-34.0); MCHC 32.2 g/dL (28.0-37.0); MCV 90.9 fL (80.0-100.0); RBC 2.62 mil/uL (4.20-5.00); RDW 15.2 % (10.5-14.5); WBC 5.6 thou/uL (4.0-11.0)
[2020-10-12 02:53] LABS: CALCIUM 8.3 mg/dL (8.5-10.1); CREATININE 4.1 mg/dL (0.6-1.0); POTASSIUM 5.7 mmol/L (3.5-5.1)
[2020-10-12 05:33] VITALS: BP 150/66
--- NOTE | 2020-10-12 06:30 | NUR ---
RECEIVED PATIENT ALERT AND ORIENTED X4.WITH DIALYSIS CATHETER AT RIGHT CHEST INTACT.WITH RIGHT GROIN COVERED WITH DRESSING C/D/I.NOT IN PAIN OR DISTRESS.TROPONIN RESULT LAST NIGHT WAS 1.84,PATIENT IS NOT HAVING ANY CHEST PAIN.INFORMED AGILE SCRUM MASTER ON DUTY.NO NEW ORDER.BMP RESULT RELAYED TO AGILE SCRUM MASTER ON DUTY, POTASSIUM WAS 5.7.DUE MORNING LASIX GIVEN.ALL NEEDS ATTENDED.FOR CONTINOUS MONITORING
--- NOTE | 2020-10-12 07:08 | EKG ---
[address] [address] ELECTROCARDIOGRAM REPORT Name: DINESH MERA Room #: 206-P ADM IN M.R.#: [id number] Admission: 10/10/20 Attend Phys: Manuel Emerson MD Discharge: Date of : 45 Report #: [id number] [facility] ED Test Date: 2020-10-10 Test Time: 21:37:09 Pat Name: DINESH MERA Department: Room: 206 P Gender: F Coat Cutter: unknown : 1945 Requested By: Manuel Emerson Order Number: [id number] MD: Vick Moncada Measurements Intervals [place] Rate: 81 P: 90 IA: 184 QRS: 1 QRSD: 164 T: 106 QT: 455 QTc: 529 Interpretive Statements Sinus rhythm IVCD, consider atypical LBBB Compared to ECG 10/10/2020 20:40:28 Sinus tachycardia no longer present Electronically Signed On 10-12-2020 7:08:26 CDT by Vick Moncada [email or web address] <ELECTRONICALLY SIGNED> By: Vick Moncada MD, [facility] 10/12/20 0708 36 36 Vick Moncada MD, [facility] /EPI
[2020-10-12 07:45] VITALS: BP 146/59
[2020-10-12 09:20] LABS: ALBUMIN 3.3 g/dL (3.4-5.0); CALCIUM 8.9 mg/dL (8.5-10.1); CREATININE 4.3 mg/dL (0.6-1.0); PHOSPHORUS 4.8 mg/dL (2.6-4.7)
[2020-10-12 12:00] VITALS: BP 143/63
--- NOTE | 2020-10-12 12:10 | NUR ---
Met with patient and spouse at bedside. Patient admits with CP. Prev hx of Cabg 2003 and COVID . Patient resides in independent home with 2 dtrs. Patient with no dme. she ambulates independently.They live in split level home with 3 steps in and 7 to bedroom bath. Spouse reports when patient ambulates steps she is SOA and takes rest break. Patient with hx of snf. She has hx of HH with [facility]. Spouse utilizes a wc due to prev stroke. Patient/spouse very concerned if patient will need to start dialysis. Spouse reports dtrs work and they have no transportation. He questions if "a place" she could go for dialysis. Reviewed dialysis in community and at a nursing facility. Therapy evals in process. Patient can complete a [employer] [facility] [employer] application but takes 14-21 days for completion. Therapy evals in process.
--- NOTE | 2020-10-12 13:47 | NUR ---
Assumed pt care this am, vs stable. Right chest dialysis cat in place not beibg used at this point. Diet and medicatiosn are tolerated well. Seen by cardio, medications given as per emar. POC followed with no signs or verbalizations of distress noted.
[2020-10-12 17:00] VITALS: BP 138/63
[2020-10-12 19:39] VITALS: BP 145/66
[2020-10-13 03:19] LABS: ALBUMIN 3.2 g/dL (3.4-5.0); CALCIUM 8.3 mg/dL (8.5-10.1); CREATININE 4.5 mg/dL (0.6-1.0); PHOSPHORUS 4.7 mg/dL (2.5-4.9); POTASSIUM 5.4 mmol/L (3.5-5.1)
--- NOTE | 2020-10-13 03:26 | NUR ---
SLEPT PART OF SHIFT. DENIES COMPLAINTS OF CHEST PAIN, WORKING ON GOALS AND PLAN OF CARE FOR NOC. ASSIST UP TO COMODE OR BATHROOM NEEDED. CONTINUE TO ASSDIONE SALDANA.
[2020-10-13 05:09] VITALS: BP 159/69
[2020-10-13 07:44] VITALS: BP 156/66
--- NOTE | 2020-10-13 10:05 | NUR ---
Assumed care of pt this AM. Pt is A&O x4, plesant. Denies any complaints of chest pain. Sinus arrhythmia w/ BBB on monitor. Took AM medication without any difficulties. Up SBA to toilet. Rt chest port in place, no use yet. Will continue to assess pt needs throughout the day.
[2020-10-13 11:56] VITALS: BP 154/58
[2020-10-13 15:54] VITALS: BP 152/63
[2020-10-13 19:27] VITALS: BP 149/68
[2020-10-13 21:17] LABS: HEMATOCRIT 22.8 % (37.0-47.0); HEMOGLOBIN 7.4 gm/dL (12.0-15.0); MCH 28.6 pg (26.0-34.0); MCHC 32.2 g/dL (28.0-37.0); RBC 2.57 mil/uL (4.20-5.00); RDW 14.8 % (10.5-14.5); WBC 4.4 thou/uL (4.0-11.0)
[2020-10-14 04:21] VITALS: BP 152/50
[2020-10-14 05:56] LABS: ALBUMIN 3.2 g/dL (3.4-5.0); CALCIUM 8.2 mg/dL (8.5-10.1); CREATININE 4.7 mg/dL (0.6-1.0); PHOSPHORUS 4.4 mg/dL (2.5-4.9); POTASSIUM 4.9 mmol/L (3.5-5.1)
[2020-10-14 07:50] VITALS: BP 153/67
[2020-10-14 11:21] VITALS: BP 134/69
[2020-10-14 11:24] VITALS: BP 132/58
[2020-10-14 15:07] VITALS: BP 156/62
--- NOTE | 2020-10-14 15:58 | NUR ---
Assumed care of pt this AM. Pt is A&O x4, denies any chest pain or SOA. Wearing 2L NC for comfort throughout the day. Imdur held this AM d/t low HR. Pt up to toilet. Sister came to visit pt this afternoon. Plan is to monitor creatinine level, discussed with pt who understands the plan. Will continue to monitor needs.
[2020-10-14 19:30] VITALS: BP 154/68
[2020-10-15 03:45] VITALS: BP 136/50
[2020-10-15 05:05] LABS: ALBUMIN 3.2 g/dL (3.4-5.0); CALCIUM 8.1 mg/dL (8.5-10.1); CREATININE 4.9 mg/dL (0.6-1.0); PHOSPHORUS 4.3 mg/dL (2.5-4.9); POTASSIUM 4.3 mmol/L (3.5-5.1)
[2020-10-15 08:18] VITALS: BP 146/61
[2020-10-15] MEDS ORDERED: TORSEMIDE20 MG PO (13:23)
[2020-10-15 13:57] VITALS: BP 146/61
--- NOTE | 2020-10-15 14:48 | NUR ---
ASSESSMENT CHARTED- MEDS PER JHOAN - RUBA DIET AND FLUIDS. NO CO'S OF PAIN OR NAUSEA. UP AD NETTA IN THE ROOM - PT HOME THIS AFTERNOON - INSTRUCTION RE HOMEMEDS/ CARE AND FOLLOW UP GIVEN TO PATIENT AND SISTER. STATED UNDERSTANDING OF INSTRUCTION GIVEN. LEFT UNIT VIA WHEELCHAIR HOME VIA PVT VEHICLE NO CO'S AT TIME OF D/C.
--- NOTE | 2020-10-15 15:12 | NUR ---
Patient to discharge home today. Gave patient information on [employer] [facility] F[facility] if needs community dialysis in future. At this time patient to f/u with Dr Chappell with lab work to be sent to Dr Manzano. Phys reports to casemgt to not arrange community dialysis at this time. No further needs
== END 2020-10-15 14:30 | disposition home or self-care (01) | DRG 280 ==
LOC: ER 20:37 → EROBS 21:58 → 2N 21:58
PROVIDERS: Internal Medicine Cardiovascular Disease; Internal Medicine Nephrology; Nurse Practitioner; Nurse Practitioner Family; ADMIT Hospitalist; ATTEND Hospitalist
PROC: 02H633Z Insertion of Infusion Device into Right Atrium, Percutaneous Approach (ICD-10-PCS; principal; 2020-10-11)
PROC: B213YZZ Fluoroscopy of Multiple Coronary Artery Bypass Grafts using Other Contrast (ICD-10-PCS; principal; 2020-10-11)
PROC: 4A023N7 Measurement of Cardiac Sampling and Pressure, Left Heart, Percutaneous Approach (ICD-10-PCS; principal; 2020-10-11)
PROC: B5181ZA Fluoroscopy of Superior Vena Cava using Low Osmolar Contrast, Guidance (ICD-10-PCS; principal; 2020-10-11)
PROC: B211YZZ Fluoroscopy of Multiple Coronary Arteries using Other Contrast (ICD-10-PCS; principal; 2020-10-11)
PROC: B218YZZ Fluoroscopy of Left Internal Mammary Bypass Graft using Other Contrast (ICD-10-PCS; principal; 2020-10-11)
PROC: 0JH63XZ Insertion of Tunneled Vascular Access Device into Chest Subcutaneous Tissue and Fascia, Percutaneous Approach (ICD-10-PCS; principal; 2020-10-11)
PROC: B548ZZA Ultrasonography of Superior Vena Cava, Guidance (ICD-10-PCS; principal; 2020-10-11)
DX: I21.4 Non-ST elevation (NSTEMI) myocardial infarction (principal); N18.6 End stage renal disease; I50.31 Acute diastolic (congestive) heart failure; T82.858A Stenosis of other vascular prosthetic devices, implants and grafts, initial encounter; N17.9 Acute kidney failure, unspecified; I42.9 Cardiomyopathy, unspecified; I13.2 Hypertensive heart and chronic kidney disease with heart failure and with stage 5 chronic kidney disease, or end stage renal disease; D64.9 Anemia, unspecified; I25.10 Atherosclerotic heart disease of native coronary artery without angina pectoris; E11.22 Type 2 diabetes mellitus with diabetic chronic kidney disease; D69.6 Thrombocytopenia, unspecified; I27.20 Pulmonary hypertension, unspecified; I08.1 Rheumatic disorders of both mitral and tricuspid valves; Y83.8 Other surgical procedures as the cause of abnormal reaction of the patient, or of later complication, without mention of misadventure at the time of the procedure; E87.5 Hyperkalemia; E78.5 Hyperlipidemia, unspecified; I50.9 Heart failure, unspecified; Z20.822 Contact with and (suspected) exposure to COVID-19; Y92.89 Other specified places as the place of occurrence of the external cause; Z95.1 Presence of aortocoronary bypass graft; Z95.5 Presence of coronary angioplasty implant and graft; Z86.16 Personal history of COVID-19; Z86.718 Personal history of other venous thrombosis and embolism; Z79.4 Long term (current) use of insulin; Z79.899 Other long term (current) drug therapy; Z88.0 Allergy status to penicillin; Z88.1 Allergy status to other antibiotic agents; Z88.8 Allergy status to other drugs, medicaments and biological substances
CPT/HCPCS: 10081